=== PATIENT | female | born 1995 | race Caucasian/White ===

== ENCOUNTER 2021-05-21 19:16 | Emergency (ER) | payer OTHER ==
[2021-05-21] MEDS ORDERED: BENTYL10 MG PO (20:43)
[2021-05-21] MEDS ORDERED: ONDANSETRON ODT4 MG SL (20:43)
== END 2021-05-21 21:33 | disposition home or self-care (01) ==
LOC: FER 19:16
DX: R10.9 Unspecified abdominal pain (principal); R11.2 Nausea with vomiting, unspecified; R19.7 Diarrhea, unspecified; R51.9 Headache, unspecified; F17.210 Nicotine dependence, cigarettes, uncomplicated
CPT/HCPCS: 99283